=== PATIENT | female | born 1955 | race African-American/Black ===

== ENCOUNTER 2018-05-01 05:04 | Inpatient (IN) ==
[2018-05-01 06:24] LABS: Baso # (Auto) 0.1 th/mm3 (0.0-0.2); Baso % (Auto) 1.3 % (0.0-2.0); Eos # (Auto) 0.2 th/mm3 (0.0-0.4); Eos % (Auto) 3.7 % (0.0-4.0); Hematocrit 22.8 % (35.0-46.0); Hemoglobin 7.2 gm/dL (11.6-15.3); Lymph # (Auto) 1.8 th/mm3 (1.0-4.8); Lymph % (Auto) 28.4 % (9.0-44.0); Mean Corpuscular HGB Conc 31.5 % (32.0-36.0); Mean Corpuscular Hemoglobin 24.9 pg (27.0-34.0); Mean Platelet Volume 9.4 fL (7.0-11.0); Mono # (Auto) 0.5 th/mm3 (0.0-0.9); Mono % (Auto) 8.2 % (0.0-8.0); Neut # (Auto) 3.8 th/mm3 (1.8-7.7); Neut % (Auto) 58.4 % (16.0-70.0); Platelet Count 349 th/mm3 (150-450); Red Blood Count 2.89 mil/mm3 (4.00-5.30); Red Cell Distribution Width 16.2 % (11.6-17.2); White Blood Count 6.5 th/mm3 (4.0-11.0)
[2018-05-01 06:39] LABS: Alanine Aminotransferase 20 U/L (10-53)
[2018-05-01 06:41] LABS: Alkaline Phosphatase 86 U/L (45-117); Total Protein 8.4 g/dL (6.4-8.2)
[2018-05-01 06:43] LABS: Albumin 3.5 g/dL (3.4-5.0); Anion Gap 8 meq/L (5-15); Aspartate Aminotransferase 28 U/L (15-37); Blood Urea Nitrogen 28 mg/dL (7-18); Calcium 9.2 mg/dL (8.5-10.1); Carbon Dioxide 23.8 meq/L (21.0-32.0); Chloride 108 meq/L (98-107); Glomerular Filtration Rate 25 mL/min (>89); Glucose,Random 151 mg/dL (74-106); Potassium 4.3 meq/L (3.5-5.1); Sodium 140 meq/L (136-145)
--- NOTE | 2018-05-01 06:45 | XR ---
EXAM DATE: 05/01/2018 6:36 AM EDT AGE/SEX: 62 years / Female INDICATIONS: Shortness of breath. CLINICAL DATA: This is the patient's initial encounter. Patient reports that signs and symptoms have been present for 1 day and indicates a pain score of 0/10. MEDICAL/SURGICAL HISTORY: Diabetes. Hypertension. . Aortic stent. Nephrectomy. [place] [facility] [place] CONTRAST, 05/01/2018. . FINDINGS: Portable AP view of the chest demonstrates a normal-sized cardiac silhouette. There is an endoluminal stent graft in the proximal descending aorta. EKG lines overlie the patient. There is questionable s ubtle airspace opacity overlying the lower lung zones. No pleural effusion or pneumothorax is identif ied. Bones and soft tissues demonstrate no acute finding. CONCLUSION: Mild hazy opacity in the lower lung zones bilaterally. This pattern can be seen with pulmonary edema. Electronically signed by: Cash Hilario MD 05/01/2018 6:44 AM EDT
--- NOTE | 2018-05-01 06:51 | CT ---
EXAM DATE: 05/01/2018 6:27 AM EDT AGE/SEX: 62 years / Female INDICATIONS: Blood in stool. Possible diverticulitis. CLINICAL DATA: This is the patient's initial encounter. Patient reports that signs and symptoms have been present for 1 day and indicates a pain score of 0/10. MEDICAL/SURGICAL HISTORY: Cardiovascular disease. Hypertension. Coronary artery stent. Mastec pipo, right. RADIATION DOSE: 15.12 CTDI (mGy) COMPARISON: No prior exams available for comparison. TECHNIQUE: Multiple contiguous axial images were obtained through the abdomen. Images were obtained using multiple row detector helical technique. Using automated exposure control and adjustment of the mA and/or kV according to patient size, radiation dose was kept as low as reasonably achievable to o btain optimal diagnostic quality images. DICOM format image data is available electronically for rev iew and comparison. FINDINGS: Lower chest: There is mild groundglass opacity in the lower lobes bilaterally. Distal end of the endo luminal stent graft in the ascending aorta is visualized. Hepatobiliary: Liver density is normal. No focal lesion is seen on this noncontrast examination. Ther e are multiple stones in the gallbladder. No wall thickening is present. Kidneys: No hydronephrosis, stone, or mass. Right kidney is absent. Adrenal Glands: Within normal limits. Spleen: Within normal limits. Pancreas: Within normal limits. Vascular: The aorta is nonaneurysmal. There is mild atherosclerotic disease. Bowel/Mesentery: The stomach and small bowel demonstrate no abnormality. No acute colon abnormality i s seen. There is no free intraperitoneal air or fluid. Appendix is normal. A small hiatal hernia is p resent. Abdominal Wall: No hernia is visualized. Retroperitoneum: No lymphadenopathy. Bladder: No wall thickening or mass. Reproductive: There are 2 areas of hypodensity in the uterus one in the left body measuring 2.1 cm an other on the left fundus measuring 1.8 cm. No adnexal abnormality is seen. Inguinal: No lymphadenopathy or hernia. There are surgical clips in the right inguinal region. Musculoskeletal: No acute osseous abnormality is identified. There are mild degenerative changes of t he lumbar spine. CONCLUSION: 1. No acute abnormality is identified to explain the patient's blood in stool. There are no findings to indicate diverticulitis. 2. Nonacute findings include cholelithiasis, small hiatal hernia, and 2 areas of high density in the left uterus measuring up to 3.1 cm at likely represent uterine fibroids. Electronically signed by: Cash Hilario MD 05/01/2018 6:50 AM EDT
--- NOTE | 2018-05-01 06:54 | ED ---
HPI General Chief complaint: Respiratory Symptoms Stated complaint: Sob Time Seen by Provider: 05/01/18 05:26 Source: patient and RN notes reviewed Mode of arrival: ambulatory History of Present Illness HPI narrative: 62yF presenting with dyspnea and anemia. The patient states that she's had shortness of breath over the past month which occurs both on exertion and at rest. She was seen at [facility] a few days ago, told that she was anemic but did not need a transfusion, and was discharged. She saw her PMD, who sent her to the ED today with a note saying that her outpatient Hg was 6.7. She has a history of CAD s/p CABG several years ago and cardiac stent 3 months ago, started on aspirin and Plavix following the stent; she also had a unilateral nephrectomy due to extensive kidney stones and has renal insufficiency at baseline. Related Data Home Medications Medication Instructions Recorded Confirmed amlodipine 10 mg PO DAILY 05/01/18 05/01/18 aspirin [Aspir-81] 81 mg PO DAILY 05/01/18 05/01/18 atorvastatin 10 mg PO DAILY 05/01/18 05/01/18 chlorthalidone 25 mg PO DAILY 05/01/18 05/01/18 clopidogrel 75 mg PO DAILY 05/01/18 05/01/18 ferrous sulfate 140 mg PO DAILY 05/01/18 05/01/18 glipizide 10 mg PO BID 05/01/18 05/01/18 linagliptin [Tradjenta] 5 mg PO DAILY 05/01/18 05/01/18 lisinopril 40 mg PO DAILY 05/01/18 05/01/18 meloxicam 15 mg PO DAILY 05/01/18 05/01/18 metoprolol tartrate 25 mg PO BID 05/01/18 05/01/18 nitroglycerin 0.4 mg SUBLINGUAL Q5-15M PRN 05/01/18 05/01/18 pantoprazole 20 mg PO DAILY 05/01/18 05/01/18 Allergies Allergy/AdvReac Type Severity Reaction Status Date / Time No Known Allergies Allergy Unverified 05/01/18 05:10 Review of Systems ROS: all other systems reviewed are negative Constitutional Reports chills and Denies fever(s) Eyes Denies blurry vision ENT Denies nasal congestion Cardiovascular Denies chest pain Respiratory Denies cough and Reports dyspnea Gastrointestinal Denies nausea Comments: No black/ tarry/ bloody stools Genitourinary Denies dysuria Musculoskeletal Denies back pain Neurologic Denies confusion Psychiatric Denies confusion COUNT INCLUDES THE [facility] History History Provided By: Patient Medical History Medical History Diabetes (Acute) HTN (hypertension) (Acute) Surgical History Surgical History History of heart artery stent (Acute) History of nephrectomy (Acute) Social History Social History Substance History: No History of Abuse Second Hand Smoke Exposure: No Smoking Status: Former smoker How Often Do You Have a Drink Containing Alcohol: Never Recent Travel in [facility] within the Last 8 Weeks: No Recent Out of Country Travel within the Last 8 Weeks: No Immunization History Tetanus Immunization: >5 Years Hx Influenza Vaccine This Season: No Exam Const General: healthy appearing and no acute distress HENMT Head: normocephalic and atraumatic Face and sinus: normal facial exam Eyes General: appearance normal, both eyes and all related structures Pupils: PERRL Chest Chest: normal inspection of the chest Resp Effort & Inspection: normal respiratory effort Auscultation: no rhonchi and no wheezes Cardio Rate: tachycardic Rhythm: regular rhythm GI Inspection: non-distended Palpation: soft and nontender Other: Normal external rectal exam, no fissures or hemorrhoids. Stool brown, guaiac positive. Skin General: no rashes or lesions noted Other: (+) mucosal pallor Neuro General: alert, awake, oriented x3 and no focal motor deficits Psych Affect: normal affect Procedures Hemaprompt Stool Procedural Steps Taken: specimen placed in appropriate test area, developer placed on specimen and control areas and controls appropriately positive and negative Hemaprompt Stool Result: positive Course Initial Documented Vital Signs Temperature 99.0 F 05/01/18 05:06 Pulse Rate 105 H 05/01/18 05:06 Respiratory Rate 20 05/01/18 05:06 Blood Pressure 139/66 05/01/18 05:06 Pulse Oximetry 97 05/01/18 05:06 Last Documented Vital Signs Temperature 99.0 F 05/01/18 05:06 Pulse Rate 113 H 05/01/18 05:43 Respiratory Rate 16 05/01/18 06:49 Blood Pressure 151/70 H 05/01/18 05:43 Pulse Oximetry 100 05/01/18 06:49 Medical Decision Making [facility] Narrative Medical decision making narrative: Assessment: 62yF presenting with anemia and dyspnea Plan: EKG and monitor Labs, including coags and type and screen Will obtain CT A/P (non-con due to renal insufficiency) to r/o mass or diverticulosis Addendum: Patient found to have Hg of 7.2 but symptomatic (dyspnea at rest, tachycardia) with recent cardiac history. Guaiac (+) in the setting of aspirin/ plavix needed for fresh cardiac stent. Mild pulmonary vascular congestion noted on CXR. No acute pathology seen on CT scan. Creat 2.0, unclear baseline (as per note from PMD, GFR is 24). I spoke with the patient regarding these results and consented her for blood transfusion (signed and in chart). She will need blood transfusion, diuresis, and further workup. Case discussed with Dr. Sol of [facility]. Differential Diagnosis Differential Diagnosis: Differential diagnosis includes, but is not limited to: anemia, GI bleed, arrhythmia, cardiomyopathy, pulmonary edema, pleural effusion Lab Data Lab results reviewed: Yes I reviewed the patient's lab results. Result diagrams: 05/01/18 06:00 05/01/18 06:00 Lab Results 05/01/18 05/01/18 05/01/18 Range/Units 06:00 06:00 06:00 WBC 6.5 (4.0-11.0) th/mm3 RBC 2.89 L (4.00-5.30) mil/mm3 Hgb 7.2 L (11.6-15.3) gm/dL Hct 22.8 L (35.0-46.0) % MCV 79.0 L (80.0-100.0) fL MCH 24.9 L (27.0-34.0) pg MCHC 31.5 L (32.0-36.0) % RDW 16.2 (11.6-17.2) % Plt Count 349 (150-450) th/mm3 MPV 9.4 (7.0-11.0) fL Neut % (Auto) 58.4 (16.0-70.0) % Lymph % (Auto) 28.4 (9.0-44.0) % Stark % (Auto) 8.2 H (0.0-8.0) % Eos % (Auto) 3.7 (0.0-4.0) % Baso % (Auto) 1.3 (0.0-2.0) % Neut # (Auto) 3.8 (1.8-7.7) th/mm3 Lymph # (Auto) 1.8 (1.0-4.8) th/mm3 Stark # (Auto) 0.5 (0.0-0.9) th/mm3 Eos # (Auto) 0.2 (0.0-0.4) th/mm3 Baso # (Auto) 0.1 (0.0-0.2) th/mm3 WBC Differential . Differential Comment Auto diff final PT (9.8-11.6) sec INR Ratio Sodium 140 (136-145) meq/L Potassium 4.3 (3.5-5.1) meq/L Chloride 108 H (98-107) meq/L Carbon Dioxide 23.8 (21.0-32.0) meq/L Anion Gap 8 (5-15) meq/L BUN 28 H (7-18) mg/dL Creatinine 2.03 H (0.50-1.00) mg/dL Estimated GFR 25 L (>89) mL/min Random Glucose 151 H (74-106) mg/dL Calcium 9.2 (8.5-10.1) mg/dL Total Bilirubin 0.3 (0.2-1.0) mg/dL AST 28 (15-37) U/L ALT 20 (10-53) U/L Alkaline Phosphatase 86 (45-117) U/L Total Protein 8.4 H (6.4-8.2) g/dL Albumin 3.5 (3.4-5.0) g/dL Blood Type B Positive Blood Type Recheck Required Antibody Screen Negative 05/01/18 Range/Units 06:50 WBC (4.0-11.0) th/mm3 RBC (4.00-5.30) mil/mm3 Hgb (11.6-15.3) gm/dL Hct (35.0-46.0) % MCV (80.0-100.0) fL MCH (27.0-34.0) pg MCHC (32.0-36.0) % RDW (11.6-17.2) % Plt Count (150-450) th/mm3 MPV (7.0-11.0) fL Neut % (Auto) (16.0-70.0) % Lymph % (Auto) (9.0-44.0) % Stark % (Auto) (0.0-8.0) % Eos % (Auto) (0.0-4.0) % Baso % (Auto) (0.0-2.0) % Neut # (Auto) (1.8-7.7) th/mm3 Lymph # (Auto) (1.0-4.8) th/mm3 Stark # (Auto) (0.0-0.9) th/mm3 Eos # (Auto) (0.0-0.4) th/mm3 Baso # (Auto) (0.0-0.2) th/mm3 WBC Differential Differential Comment PT 10.5 (9.8-11.6) sec INR 1.0 Ratio Sodium (136-145) meq/L Potassium (3.5-5.1) meq/L Chloride (98-107) meq/L Carbon Dioxide (21.0-32.0) meq/L Anion Gap (5-15) meq/L BUN (7-18) mg/dL Creatinine (0.50-1.00) mg/dL Estimated GFR (>89) mL/min Random Glucose (74-106) mg/dL Calcium (8.5-10.1) mg/dL Total Bilirubin (0.2-1.0) mg/dL AST (15-37) U/L ALT (10-53) U/L Alkaline Phosphatase (45-117) U/L Total Protein (6.4-8.2) g/dL Albumin (3.4-5.0) g/dL Blood Type Blood Type Recheck Antibody Screen Imaging Data Radiologist's impression: Abdomen/Pelvis CT 05/01/18 05:45 CONCLUSION: 1. No acute abnormality is identified to explain the patient's blood in stool. There are no findings to indicate diverticulitis. 2. Nonacute findings include cholelithiasis, small hiatal hernia, and 2 areas of high density in the left uterus measuring up to 3.1 cm at likely represent uterine fibroids. Chest X-Ray 05/01/18 05:45 CONCLUSION: Mild hazy opacity in the lower lung zones bilaterally. This pattern can be seen with pulmonary edema. ECG Data Attestation: I personally reviewed and interpreted this ECG as follows: Interpretation: Rate: 85 BPM Rhythm: Sinus Lena: Normal Intervals: Normal intervals, no blocks, QTc 433 ms Q waves: None T waves: Upright, no inversions ST segments: No elevations or depressions Impression: Non-specific EKG, no previous EKG available for comparison. Discharge Plan Discharge Disposition Patient Disposition: 30 Still Patient Discharge Condition Condition: Stable Discharge Details Diagnosis: Anemia requiring transfusions, Chronic kidney insufficiency, GI bleed Physicians Team ED Provider: Trinity Rowland Primary Care Provider: UNKNOWN, Rxs /Orders / Referrals /Forms Prescriptions: No Action clopidogrel 75 mg Tablet 75 mg PO DAILY RF: 0 pantoprazole 20 mg Tablet,Delayed Release (Dr/Ec) 20 mg PO DAILY RF: 0 metoprolol tartrate 25 mg Tablet 25 mg PO BID RF: 0 atorvastatin 10 mg Tablet 10 mg PO DAILY RF: 0 meloxicam 15 mg Tablet 15 mg PO DAILY RF: 0 lisinopril 20 mg Tablet 40 mg PO DAILY RF: 0 glipizide 10 mg Tablet 10 mg PO BID RF: 0 chlorthalidone 25 mg Tablet 25 mg PO DAILY RF: 0 aspirin [Aspir-81] 81 mg Tablet,Delayed Release (Dr/Ec) 81 mg PO DAILY RF: 0 amlodipine 10 mg Tablet 10 mg PO DAILY RF: 0 nitroglycerin 0.4 mg Tablet, Sublingual 0.4 mg SUBLINGUAL Q5-15M PRN (Reason: Chest Pain) RF: 0 ferrous sulfate 140 mg (45 mg iron) Tablet Extended Release 140 mg PO DAILY RF: 0 linagliptin [Tradjenta] 5 mg Tablet 5 mg PO DAILY RF: 0 Status ED Status: With Doctor
[2018-05-01 07:08] LABS: Prothrombin Time 10.5 sec (9.8-11.6)
[2018-05-01] MEDS ORDERED: Dextrose 50% in Water 50 ML Vial IV.PUSH PRN (07:58)
[2018-05-01] MEDS ORDERED: Sodium Chlor 0.9% Inj 250 ML IV.SIG SCH (08:00)
--- NOTE | 2018-05-01 08:12 | P.HPIM ---
History of Present Illness Primary Care Physician: UNKNOWN Chief Complaint: shortness of breath History of Present Illness: patient is a 62 y/o female with history of PUD, CAD- s/p CABG and stent, hypertension, diabetes , CKD- s/p right nephrectomy- presented to ER with one week history of sob. she says that she feels tired and fatigued. she says that she went to [facility] two days ago and after she had some blood work she was discharged home. she had another blood work prior to this presentation when she was found to have a Hb of 6.7 for which she was advised to come back to ER by her PCP. she says that she had some dark stool few days ago. she had mild generalized abdominal pain and nausea earlier which has almost resolved. she denies any chest pain. she says that she had EGD/colonoscopy four years ago and was found to have ' stomach ulcer'. she denies using NSAIDs. Inpatient Certification: I certify that the inpatient services were ordered in accordance with Medicare regulations governing the order. This includes certification that hospital inpatient services are reasonable and necessary and in the case of services not specified as inpatient-only under 42 CFR 419.22(n), that they are appropriately provided as inpatient services in accordance to with the 2-midnight benchmark under 43 CFR 412.3(e) Estimated Total Length of Stay (Days): 2 Plans for Post Hospital Care: Home Review of Systems All other systems reviewed negative except as stated in HPI [facility] - History History Provided By: Patient - Medical History Medical History: Medical History (Last Reviewed 05/01/18 @ 06:50 by Trinity Rowland DO) Diabetes HTN (hypertension) - Surgical History Surgical History: Surgical History (Last Reviewed 05/01/18 @ 06:50 by Trinity Rowland DO) History of heart artery stent History of nephrectomy - Tobacco History Second Hand Smoke Exposure: No Tobacco Use In Past 30 Days: No Smoking Status: Former smoker - Alcohol History How Often Do You Have a Drink Containing Alcohol: Never - Substance Use History Substance History: No History of Abuse - Travel History Recent Travel in the [place] Within the Last 8 Weeks: No Recent Travel Out of the Country Within the Last 8 Weeks: No - Immunization History Tetanus Immunization: >5 Years Hx Influenza Vaccine This Season: No Medications and Allergies Active Medications: Active Medications Dextrose (D50w Vial) 50 ml IV.PUSH UNSCH PRN PRN Reason: PER HYPOGLYCEMIA PROTOCOL Glucagon (Glucagon Inj) 1 mg OTHER UNSCH PRN PRN Reason: for Hypoglycemia Protocol Sodium Chloride (Ns Inj) 250 mls @ 15 mls/hr IV.SIG ONCE DANY Stop: 05/02/18 00:39 Insulin Aspart (Novolog Insulin Correctional Sugar Inj) 0 unit SQ ACHS DANY; Protocol Allergies Allergy/AdvReac Type Severity Reaction Status Date / Time No Known Allergies Allergy Unverified 05/01/18 05:10 Home Medications Medication Instructions Recorded Confirmed Type amlodipine 10 mg PO DAILY 05/01/18 05/01/18 History aspirin [Aspir-81] 81 mg PO DAILY 05/01/18 05/01/18 History atorvastatin 10 mg PO DAILY 05/01/18 05/01/18 History chlorthalidone 25 mg PO DAILY 05/01/18 05/01/18 History clopidogrel 75 mg PO DAILY 05/01/18 05/01/18 History ferrous sulfate 140 mg PO DAILY 05/01/18 05/01/18 History glipizide 10 mg PO BID 05/01/18 05/01/18 History linagliptin [Tradjenta] 5 mg PO DAILY 05/01/18 05/01/18 History lisinopril 40 mg PO DAILY 05/01/18 05/01/18 History meloxicam 15 mg PO DAILY 05/01/18 05/01/18 History metoprolol tartrate 25 mg PO BID 05/01/18 05/01/18 History nitroglycerin 0.4 mg SUBLINGUAL Q5-15M PRN 05/01/18 05/01/18 History pantoprazole 20 mg PO DAILY 05/01/18 05/01/18 History Exam Vital signs: Vital Signs 05/01/18 05:06 05/01/18 05:43 05/01/18 06:49 Temperature 99.0 F Pulse Rate 105 H 113 H Respiratory Rate 20 20 16 Blood Pressure 139/66 151/70 H Pulse Oximetry 97 95 100 Intake & Output 04/30/18 05/01/18 05/01/18 18:59 06:59 18:59 Weight 83.461 kg - Constitutional no acute distress - Routine HEENT Exam Head: Present: normocephalic Eye: Present: PERRL - Routine Neck Exam Present: supple - Routine Respiratory Exam Present: CTA bilaterally - Routine Cardiovascular Exam Present: RRR - Routine Abdominal Exam Present: soft - Routine Extremities Exam Comments: no pedal edema. - Routine Neurological Exam Present: alert, oriented X3 Results - Labs CBC & Chem 7: 05/01/18 06:00 05/01/18 06:00 Labs: Short CBC 05/01/18 Range/Units 06:00 WBC 6.5 (4.0-11.0) th/mm3 Hgb 7.2 L (11.6-15.3) gm/dL Hct 22.8 L (35.0-46.0) % Plt Count 349 (150-450) th/mm3 BMP 05/01/18 06:00 Sodium 140 Potassium 4.3 Chloride 108 H Carbon Dioxide 23.8 BUN 28 H Creatinine 2.03 H Calcium 9.2 Liver Function 05/01/18 Range/Units 06:00 Total Bilirubin 0.3 (0.2-1.0) mg/dL AST 28 (15-37) U/L ALT 20 (10-53) U/L Alkaline Phosphatase 86 (45-117) U/L Albumin 3.5 (3.4-5.0) g/dL - Imaging Impressions Abdomen/Pelvis CT 05/01/18 05:45 CONCLUSION: 1. No acute abnormality is identified to explain the patient's blood in stool. There are no findings to indicate diverticulitis. 2. Nonacute findings include cholelithiasis, small hiatal hernia, and 2 areas of high density in the left uterus measuring up to 3.1 cm at likely represent uterine fibroids. Chest X-Ray 05/01/18 05:45 CONCLUSION: Mild hazy opacity in the lower lung zones bilaterally. This pattern can be seen with pulmonary edema. Caprini VTE Risk Assessment Caprini VTE Risk Assessment: Moderate/High Risk (score >= 2) VTE Pharmacological Exception Reason: High risk for bleeding Caprini Risk Assessment Model: Point Value = 1 Point Value = 2 Point Value = 3 Point Value = 5 Age 41-60 Minor surgery BMI > 25 kg/m2 Swollen legs Varicose veins or History of unexplained or recurrent spontaneous Oral contraceptives or hormone replacement Sepsis (< 1 month) Serious lung disease, including pneumonia (< 1 month) Abnormal pulmonary function Acute myocardial infarction Congestive heart failure (< 1 month) History of inflammatory bowel disease Medical patient at bed rest Age 61-74 Arthroscopic surgery Major open surgery (> 45 min) Laparoscopic surgery (> 45 min) Malignancy Confined to bed (> 72 hours) Immobilizing plaster cast Central venous access Age >= 75 History of VTE Family history of VTE Factor V Leiden Prothrombin [id number] Lupus anticoagulant Anticardiolipin antibodies Elevated serum homocysteine Heparin-induced thrombocytopenia Other congenital or acquired thrombophilia Stroke (< 1 month) Elective arthroplasty Hip, pelvis, or leg fracture Acute spinal cord injury (< 1 month) Prophylaxis Regimen: Total Risk Factor Score Risk Level Prophylaxis Regimen 0-1 Low Early ambulation 2 Moderate Order ONE of the following: *Sequential Compression Device (SCD) *Heparin 5000 units SQ BID 3-4 Higher Order ONE of the following medications: *Heparin 5000 units SQ TID *Enoxaparin/Lovenox 40 mg SQ daily (WT < 150 kg, CrCl > 30 mL/min) *Enoxaparin/Lovenox 30 mg SQ daily (WT < 150 kg, CrCl > 10-29 mL/min) *Enoxaparin/Lovenox 30 mg SQ BID (WT < 150 kg, CrCl > 30 mL/min) AND/OR *Sequential Compression Device (SCD) 5 or more Highest Order ONE of the following medications: *Heparin 5000 units SQ TID (Preferred with Epidurals) *Enoxaparin/Lovenox 40 mg SQ daily (WT < 150 kg, CrCl > 30 mL/min) *Enoxaparin/Lovenox 30 mg SQ daily (WT < 150 kg, CrCl > 10-29 mL/min) *Enoxaparin/Lovenox 30 mg SQ BID (WT < 150 kg, CrCl > 30 mL/min) AND *Sequential Compression Device (SCD) Assessment and Plan - Plan A/P - symptomatic anemia likely due to GI bleed- reported Hb 6.7 prior to this presentation will transfuse with PRBC and continue to monitor H/H-will check iron panel- start on Protonix and consult GI. -CAD- s/p CABG in 2008 and stent placement three months ago- hold aspirin- will resume plavix if ok with GI. continue statin and BB. -s/p right nephrectomy/ CKD- seems to be at her baseline ( reported GFR of 24)- continue to monitor -hypertension; will continue amlodipine and metoprolol- hold NAYELI for now. -diabetes mellitus; start on accu-check with SSI -DVT prophylaxis; SCD's- no chemical prophylaxis due to anemia/ GI bleed. Discussed Condition With: ER and the patient. Discharge Planning: home when GI w/u completed and stable.
--- NOTE | 2018-05-01 08:43 | ECG ---
Date Performed: 05/01/2018 Time Performed: 06:06:18 PTAGE: 62 years EKG: Sinus rhythm NONSPECIFIC ST & T-WAVE ABNORMALITY BORDERLINE ECG NO PREVIOUS TRACING DOCTOR: Naresh Meyers Interpretating Date/Time 05/01/2018 08:37:18
[2018-05-01] MEDS: Insulin NovoLOG Aspart Correctional Sugar Inj SQ SCH ×4 (08:48→21:00)
[2018-05-01] MEDS: Metoprolol Tartrate 25 MG Tablet PO SCH ×3 (09:53→22:26)
[2018-05-01] MEDS: Pantoprazole Inj 40 MG Vial IV.PUSH SCH (09:53)
[2018-05-01] MEDS: Ferrous Sulfate 325 MG Tablet PO SCH (09:53)
[2018-05-01] MEDS: amLODIPine 10 MG Tablet PO SCH (09:53)
--- NOTE | 2018-05-01 12:27 | P.CONGI ---
History of Present Illness Consult date: 05/01/18 Consult reason: Symptomatic anemia Chief complaint: anemia requiring transfusions, GI bleed History of Present Illness: This is a 62 y/o female with history of PUD, CAD- s/p CABG and stent a couple of months ago on Plavix at home, hypertension, diabetes , chronic anemia, CKD s/ p right nephrectomy who presented with sob and fatigue for the past week. Pt was evaluated at [facility] two days ago and was discharged home after doing some blood work. she had another blood work prior to this presentation when she was found to have a Hb of 6.7 for which she was advised to come back to ER by her PCP. She endorses abdominal pain in different areas comes and goes but not severe. She had some dark stools few days ago. Denies nausea, vomiting, diarrhea, constipation or hematochezia she denies any chest pain. she says that she had EGD/colonoscopy four years ago in [place] and was found to have stomach ulcer. she denies alcohol or NSAIDs. She has family hx of colon cancer (mother and brother) <Munira Oliver - Last Filed: 05/10/18 18:30> Review of Systems All other systems reviewed negative except as stated in HPI <Munira Oliver - Last Filed: 05/10/18 18:30> [facility] - Medical History Medical History: Medical History (Last Reviewed 05/01/18 @ 06:50 by Trinity Rowland DO) Diabetes HTN (hypertension) - Surgical History Surgical History: Surgical History (Last Reviewed 05/01/18 @ 06:50 by Trinity Rowland DO) History of heart artery stent History of nephrectomy <Alicia Simmons - Last Filed: 05/01/18 14:53> - History History Provided By: Patient - Medical History Medical History: Medical History (Last Reviewed 05/01/18 @ 14:34 by Alisha Sapp) Diabetes HTN (hypertension) - Surgical History Surgical History: Surgical History (Last Reviewed 05/01/18 @ 14:34 by Alisha Sapp) History of heart artery stent History of nephrectomy - Tobacco History Second Hand Smoke Exposure: No Tobacco Use In Past 30 Days: No Smoking Status: Former smoker - Alcohol History How Often Do You Have a Drink Containing Alcohol: Never - Substance Use History Substance History: No History of Abuse - Travel History Recent Travel in the [place] Within the Last 8 Weeks: No Recent Travel Out of the Country Within the Last 8 Weeks: No - Immunization History Tetanus Immunization: >5 Years Hx Influenza Vaccine This Season: No <LeidaMunira camacho - Last Filed: 05/10/18 18:30> Medications and Allergies Active Medications: Active Medications Amlodipine Besylate (Norvasc) 10 mg PO DAILY [facility] Last Admin: 05/01/18 09:53 Dose: 10 mg Atorvastatin Calcium (Lipitor) 10 mg PO DAILY [facility] Last Admin: 05/01/18 09:53 Dose: 10 mg Dextrose (D50w Vial) 50 ml IV.PUSH UNSCH PRN PRN Reason: PER HYPOGLYCEMIA PROTOCOL Ferrous Sulfate (Ferosul) 325 mg PO DAILY [facility] Last Admin: 05/01/18 09:53 Dose: 325 mg Glucagon (Glucagon Inj) 1 mg OTHER UNSCH PRN PRN Reason: for Hypoglycemia Protocol Sodium Chloride (Ns Inj) 250 mls @ 15 mls/hr IV.SIG ONCE DANY Stop: 05/02/18 00:39 Last Admin: 05/01/18 09:54 Dose: 15 mls/hr Insulin Aspart (Novolog Insulin Correctional Sugar Inj) 0 unit SQ ACHS [facility]; Protocol Last Admin: 05/01/18 12:48 Dose: Not Given Metoprolol Tartrate (Lopressor) 25 mg PO BID [facility] Last Admin: 05/01/18 10:18 Dose: Not Given Pantoprazole Sodium (Protonix Inj) 40 mg IV.PUSH Q24H [facility] Last Admin: 05/01/18 09:53 Dose: 40 mg Polyethylene Glycol/Electrolytes (Colyte Liq) 4,000 ml PO ONCE ONE Stop: 05/01/18 16:01 <Alicia Simmons - Last Filed: 05/01/18 14:53> Active Medications: Active Medications Amlodipine Besylate (Norvasc) 10 mg PO DAILY [facility] Last Admin: 05/01/18 09:53 Dose: 10 mg Atorvastatin Calcium (Lipitor) 10 mg PO DAILY [facility] Last Admin: 05/01/18 09:53 Dose: 10 mg Dextrose (D50w Vial) 50 ml IV.PUSH UNSCH PRN PRN Reason: PER HYPOGLYCEMIA PROTOCOL Ferrous Sulfate (Ferosul) 325 mg PO DAILY [facility] Last Admin: 05/01/18 09:53 Dose: 325 mg Glucagon (Glucagon Inj) 1 mg OTHER UNSCH PRN PRN Reason: for Hypoglycemia Protocol Sodium Chloride (Ns Inj) 250 mls @ 15 mls/hr IV.SIG ONCE DANY Stop: 05/02/18 00:39 Last Admin: 05/01/18 09:54 Dose: 15 mls/hr Insulin Aspart (Novolog Insulin Correctional Sugar Inj) 0 unit SQ ACHS [facility]; Protocol Last Admin: 05/01/18 08:48 Dose: Not Given Metoprolol Tartrate (Lopressor) 25 mg PO BID [facility] Last Admin: 05/01/18 10:18 Dose: Not Given Pantoprazole Sodium (Protonix Inj) 40 mg IV.PUSH Q24H [facility] Last Admin: 05/01/18 09:53 Dose: 40 mg <Munira Oliver - Last Filed: 05/10/18 18:30> Allergies Allergy/AdvReac Type Severity Reaction Status Date / Time No Known Allergies Allergy Unverified 05/01/18 05:10 Home Medications Medication Instructions Recorded Confirmed Type amlodipine 10 mg PO DAILY 05/01/18 05/01/18 History aspirin [Aspir-81] 81 mg PO DAILY 05/01/18 05/01/18 History atorvastatin 10 mg PO DAILY 05/01/18 05/01/18 History chlorthalidone 25 mg PO DAILY 05/01/18 05/01/18 History glipizide 10 mg PO BID 05/01/18 05/01/18 History linagliptin [Tradjenta] 5 mg PO DAILY 05/01/18 05/01/18 History lisinopril 40 mg PO DAILY 05/01/18 05/01/18 History nitroglycerin 0.4 mg SUBLINGUAL Q5-15M PRN 05/01/18 05/01/18 History Exam Vital signs: Vital Signs 05/01/18 05:06 05/01/18 05:43 05/01/18 06:49 Temperature 99.0 F Pulse Rate 105 H 113 H Respiratory Rate 20 20 16 Blood Pressure 139/66 151/70 H Pulse Oximetry 97 95 100 05/01/18 08:30 05/01/18 08:35 05/01/18 08:45 Temperature 98.2 F 98.2 F 98.1 F Pulse Rate 87 65 64 Respiratory Rate 20 20 Blood Pressure 165/73 H 165/73 H 146/68 H Pulse Oximetry 98 98 100 05/01/18 09:18 05/01/18 09:53 05/01/18 10:00 Temperature 98.3 F Pulse Rate 60 64 64 Respiratory Rate 22 20 20 Blood Pressure 150/68 H 148/69 H 148/69 H Pulse Oximetry 100 100 05/01/18 12:46 05/01/18 14:24 Temperature 98.2 F Pulse Rate 75 84 Respiratory Rate 20 17 Blood Pressure 157/74 H 130/61 Pulse Oximetry 100 94 L Intake & Output 04/30/18 05/01/18 05/01/18 18:59 06:59 18:59 Intake Total 0 / 0 Balance 0 / 0 Weight 83.461 kg Intake: Intake (Blood Product) Amt 0 / 0 Rbc As-3 Leukoreduced Unit 0 / 0 [id number] Other: Date of Last Bowel Movement 04/30/18 <Alicia Simmons - Last Filed: 05/01/18 14:53> Vital signs: Vital Signs 05/01/18 05:06 05/01/18 05:43 05/01/18 06:49 Temperature 99.0 F Pulse Rate 105 H 113 H Respiratory Rate 20 20 16 Blood Pressure 139/66 151/70 H Pulse Oximetry 97 95 100 05/01/18 08:30 05/01/18 08:35 05/01/18 08:45 Temperature 98.2 F 98.2 F 98.1 F Pulse Rate 87 65 64 Respiratory Rate 20 20 Blood Pressure 165/73 H 165/73 H 146/68 H Pulse Oximetry 98 98 100 05/01/18 09:18 05/01/18 09:53 05/01/18 10:00 Temperature 98.3 F Pulse Rate 60 64 64 Respiratory Rate 22 20 20 Blood Pressure 150/68 H 148/69 H 148/69 H Pulse Oximetry 100 100 Intake & Output 04/30/18 05/01/18 05/01/18 18:59 06:59 18:59 Intake Total 0 / 0 Balance 0 / 0 Weight 83.461 kg Intake: Intake (Blood Product) Amt 0 / 0 Rbc As-3 Leukoreduced Unit 0 / 0 [id number] - Constitutional no acute distress - Routine HEENT Exam Head: Present: normocephalic ENT: Present: mucous membranes moist - Routine Neck Exam Present: supple - Routine Respiratory Exam Present: CTA bilaterally - Routine Cardiovascular Exam Present: RRR - Routine Abdominal Exam Present: soft, normoactive bowel sounds, tenderness - Routine Extremities Exam Absent: cyanosis, clubbing - Routine Skin Exam Present: intact, dry. Absent: jaundice - Routine Neurological Exam Present: alert, oriented X3 <Munira Oliver - Last Filed: 05/10/18 18:30> Results - Labs CBC & Chem 7: 05/01/18 12:10 05/01/18 06:00 Labs: Laboratory Results - last 24 hr 05/01/18 05/01/18 05/01/18 06:00 06:00 06:00 WBC 6.5 RBC 2.89 L Hgb 7.2 L Hct 22.8 L MCV 79.0 L MCH 24.9 L MCHC 31.5 L RDW 16.2 Plt Count 349 MPV 9.4 Neut % (Auto) 58.4 Lymph % (Auto) 28.4 Kern % (Auto) 8.2 H Eos % (Auto) 3.7 Baso % (Auto) 1.3 Neut # (Auto) 3.8 Lymph # (Auto) 1.8 Kern # (Auto) 0.5 Eos # (Auto) 0.2 Baso # (Auto) 0.1 WBC Differential . Differential Comment Auto diff final PT INR Sodium 140 Potassium 4.3 Chloride 108 H Carbon Dioxide 23.8 Anion Gap 8 BUN 28 H Creatinine 2.03 H Estimated GFR 25 L POC Glucose Random Glucose 151 H Calcium 9.2 Iron TIBC % Saturation Ferritin Total Bilirubin 0.3 AST 28 ALT 20 Alkaline Phosphatase 86 Total Protein 8.4 H Albumin 3.5 Blood Type B Positive Blood Type Recheck Required Antibody Screen Negative MTS Gel Crossmatch 05/01/18 05/01/18 05/01/18 06:50 07:35 08:44 WBC RBC Hgb Hct MCV MCH MCHC RDW Plt Count MPV Neut % (Auto) Lymph % (Auto) Kern % (Auto) Eos % (Auto) Baso % (Auto) Neut # (Auto) Lymph # (Auto) Kern # (Auto) Eos # (Auto) Baso # (Auto) WBC Differential Differential Comment PT 10.5 INR 1.0 Sodium Potassium Chloride Carbon Dioxide Anion Gap BUN Creatinine Estimated GFR POC Glucose 142 H Random Glucose Calcium Iron TIBC % Saturation Ferritin Total Bilirubin AST ALT Alkaline Phosphatase Total Protein Albumin Blood Type Blood Type Recheck Antibody Screen MTS Gel Crossmatch See Detail 05/01/18 05/01/18 05/01/18 12:10 12:10 12:10 WBC RBC Hgb 9.0 L Hct 28.8 L MCV MCH MCHC RDW Plt Count MPV Neut % (Auto) Lymph % (Auto) Kern % (Auto) Eos % (Auto) Baso % (Auto) Neut # (Auto) Lymph # (Auto) Kern # (Auto) Eos # (Auto) Baso # (Auto) WBC Differential Differential Comment PT INR Sodium Potassium Chloride Carbon Dioxide Anion Gap BUN Creatinine Estimated GFR POC Glucose Random Glucose Calcium Iron 150 TIBC 437 % Saturation 34.3 Ferritin 7 L Total Bilirubin AST ALT Alkaline Phosphatase Total Protein Albumin Blood Type Blood Type Recheck Antibody Screen MTS Gel Crossmatch 05/01/18 12:44 WBC RBC Hgb Hct MCV MCH MCHC RDW Plt Count MPV Neut % (Auto) Lymph % (Auto) Kern % (Auto) Eos % (Auto) Baso % (Auto) Neut # (Auto) Lymph # (Auto) Kern # (Auto) Eos # (Auto) Baso # (Auto) WBC Differential Differential Comment PT INR Sodium Potassium Chloride Carbon Dioxide Anion Gap BUN Creatinine Estimated GFR POC Glucose 144 H Random Glucose Calcium Iron TIBC % Saturation Ferritin Total Bilirubin AST ALT Alkaline Phosphatase Total Protein Albumin Blood Type Blood Type Recheck Antibody Screen MTS Gel Crossmatch - Imaging Impressions Abdomen/Pelvis CT 05/01/18 05:45 CONCLUSION: 1. No acute abnormality is identified to explain the patient's blood in stool. There are no findings to indicate diverticulitis. 2. Nonacute findings include cholelithiasis, small hiatal hernia, and 2 areas of high density in the left uterus measuring up to 3.1 cm at likely represent uterine fibroids. Chest X-Ray 05/01/18 05:45 CONCLUSION: Mild hazy opacity in the lower lung zones bilaterally. This pattern can be seen with pulmonary edema. <Alicia Simmons - Last Filed: 05/01/18 14:53> - Labs CBC & Chem 7: 05/02/18 14:01 05/02/18 23:55 Labs: Laboratory Results - last 24 hr 05/01/18 05/01/18 05/01/18 06:00 06:00 06:00 WBC 6.5 RBC 2.89 L Hgb 7.2 L Hct 22.8 L MCV 79.0 L MCH 24.9 L MCHC 31.5 L RDW 16.2 Plt Count 349 MPV 9.4 Neut % (Auto) 58.4 Lymph % (Auto) 28.4 Kern % (Auto) 8.2 H Eos % (Auto) 3.7 Baso % (Auto) 1.3 Neut # (Auto) 3.8 Lymph # (Auto) 1.8 Kern # (Auto) 0.5 Eos # (Auto) 0.2 Baso # (Auto) 0.1 WBC Differential . Differential Comment Auto diff final PT INR Sodium 140 Potassium 4.3 Chloride 108 H Carbon Dioxide 23.8 Anion Gap 8 BUN 28 H Creatinine 2.03 H Estimated GFR 25 L POC Glucose Random Glucose 151 H Calcium 9.2 Total Bilirubin 0.3 AST 28 ALT 20 Alkaline Phosphatase 86 Total Protein 8.4 H Albumin 3.5 Blood Type B Positive Blood Type Recheck Required Antibody Screen Negative MTS Gel Crossmatch 05/01/18 05/01/18 05/01/18 06:50 07:35 08:44 WBC RBC Hgb Hct MCV MCH MCHC RDW Plt Count MPV Neut % (Auto) Lymph % (Auto) Kern % (Auto) Eos % (Auto) Baso % (Auto) Neut # (Auto) Lymph # (Auto) Kern # (Auto) Eos # (Auto) Baso # (Auto) WBC Differential Differential Comment PT 10.5 INR 1.0 Sodium Potassium Chloride Carbon Dioxide Anion Gap BUN Creatinine Estimated GFR POC Glucose 142 H Random Glucose Calcium Total Bilirubin AST ALT Alkaline Phosphatase Total Protein Albumin Blood Type Blood Type Recheck Antibody Screen MTS Gel Crossmatch See Detail - Imaging Impressions Abdomen/Pelvis CT 05/01/18 05:45 CONCLUSION: 1. No acute abnormality is identified to explain the patient's blood in stool. There are no findings to indicate diverticulitis. 2. Nonacute findings include cholelithiasis, small hiatal hernia, and 2 areas of high density in the left uterus measuring up to 3.1 cm at likely represent uterine fibroids. Chest X-Ray 05/01/18 05:45 CONCLUSION: Mild hazy opacity in the lower lung zones bilaterally. This pattern can be seen with pulmonary edema. <Munira Oliver - Last Filed: 05/10/18 18:30> Assessment and Plan - Attending Attestation seen, examined agree with above history of chronic anemia , has beed on iron for many years recently was seen at [facility], had ct abdomen/pelvis States her hb was 6 for few weeks She had a recent cardiac stent 2 month ago, had a stent placed-was started onPalvix She was aslo taking Meloxicam, was dc recently states she also had a nephew who of colon cancer at age 7 we will consult hematology too <Alicia Simmons - Last Filed: 05/01/18 14:53> - Plan - Chronic anemia on acute anemia , worsening, now symptomatic with this- hgb 7.2 with sob and fatigue for the past week. Pt was evaluated at [facility] two days ago and was discharged home after doing some blood work. she had another blood work prior to this presentation when she was found to have a Hb of 6.7 for which she was advised to come back to ER by her PCP. She endorses abdominal pain in different areas comes and goes but not severe. She had some dark stools few days ago. Denies nausea, vomiting, diarrhea, constipation or hematochezia she denies any chest pain. she says that she had EGD/ colonoscopy four years ago in [place] and was found to have stomach ulcer. she denies alcohol or NSAIDs Abdomen/Pelvis CT 05/01/18 05:45 CONCLUSION: 1. No acute abnormality is identified to explain the patient's blood in stool. There are no findings to indicate diverticulitis. 2. Nonacute findings include cholelithiasis, small hiatal hernia, and 2 areas of high density in the left uterus measuring up to 3.1 cm at likely represent uterine fibroids. - CAD- s/p CABG and stent a couple of months ago on Plavix at home, - hypertension, diabetes , chronic anemia, CKD s/p right nephrectomy Plan: - Clears - EGD/colonoscopy in the am - NPO mn - Cont. to hold Plavix for now - Monitor hh - Transfuse as needed - Supportive care - Pt seen and examined by Dr. Simmons and myself and this note is written on her behalf. <Munira Oliver - Last Filed: 05/10/18 18:30>
[2018-05-01 12:54] LABS: % Iron Saturation 34.3 % (20-50)
[2018-05-01] MEDS ORDERED: PEG 3350/E-Lyte Soln 4000 ML Bottle PO ONE (16:00)
[2018-05-02] MEDS ORDERED: Chlorhexidine Gluconate 2% 1 Pack (2 Cloths) TOPICAL SCH (06:30)
[2018-05-02] MEDS ORDERED: Sodium Chlor 0.9% Inj 500 ML IV.SIG SCH (07:00)
[2018-05-02] MEDS: Metoprolol Tartrate 25 MG Tablet PO SCH ×2 (08:45→20:42)
[2018-05-02] MEDS: Ferrous Sulfate 325 MG Tablet PO SCH (08:56)
[2018-05-02] MEDS: Insulin NovoLOG Aspart Correctional Sugar Inj SQ SCH ×4 (08:56→20:43)
[2018-05-02] MEDS: amLODIPine 10 MG Tablet PO SCH (08:57)
[2018-05-02] MEDS: Pantoprazole Inj 40 MG Vial IV.PUSH SCH (08:58)
--- NOTE | 2018-05-02 10:13 | P.PNIM ---
Subjective Interval history: f/u; symptomatic anemia looks and feels much better today. feels stronger and sob has resolved. denies abdominal pain. Physical Exam Vital signs: Vital Signs 05/01/18 12:46 05/01/18 14:24 05/01/18 16:00 Temperature 98.2 F 98.3 F Pulse Rate 75 84 80 Respiratory Rate 20 17 18 Blood Pressure 157/74 H 130/61 141/66 H Pulse Oximetry 100 94 L 100 05/01/18 21:21 05/01/18 22:00 05/01/18 23:59 Temperature 98.9 F 98.6 F Pulse Rate 76 76 72 Respiratory Rate 18 18 Blood Pressure 136/64 133/64 Pulse Oximetry 98 95 05/02/18 04:00 Temperature 98.2 F Pulse Rate 79 Respiratory Rate 18 Blood Pressure 121/63 Pulse Oximetry 96 Intake & Output 05/01/18 05/02/18 05/02/18 18:59 06:59 18:59 Intake Total 240 / 240 480 / 480 Balance 240 / 240 480 / 480 Weight 83.4 kg Intake: Oral 240 / 240 480 / 480 Intake (Blood Product) Amt 0 / 0 Rbc As-3 Leukoreduced Unit 0 / 0 [id number] Other: # Voids 3 Date of Last Bowel Movement 04/30/18 04/30/18 05/02/18 # Bowel Movements 6 - Constitutional no acute distress - Routine Respiratory Exam Present: CTA bilaterally - Routine Cardiovascular Exam Present: RRR - Routine Abdominal Exam Present: soft - Routine Extremities Exam Comments: no pedal edema. - Routine Neurological Exam Present: alert, oriented X3 Results - Labs CBC & Chem 7: 05/01/18 12:10 05/01/18 06:00 Laboratory Results - last 24 hr 05/01/18 05/01/18 05/01/18 12:10 12:10 12:10 Hgb 9.0 L Hct 28.8 L POC Glucose Iron 150 TIBC 437 % Saturation 34.3 Ferritin 7 L 05/01/18 05/01/18 05/01/18 12:44 17:16 20:04 Hgb Hct POC Glucose 144 H 103 146 H Iron TIBC % Saturation Ferritin 05/02/18 08:52 Hgb Hct POC Glucose 139 H Iron TIBC % Saturation Ferritin Assessment and Plan - Plan A/P - symptomatic anemia likely due to GI bleed- reported Hb 6.7 prior to this presentation- clinically better. H/H improved after PRBC transfusion- started on Protonix. GI consult appreciated;awaiting panendoscopy and hematology evaluation. -CAD- s/p CABG in 2008 and stent placement three months ago- hold aspirin- will resume plavix as soon as cleared by GI. continue statin and BB. -s/p right nephrectomy/ CKD- seems to be at her baseline ( reported GFR of 24)- continue to monitor -hypertension; will continue amlodipine and metoprolol- hold NAYELI for now. -diabetes mellitus; started on accu-check with SSI -DVT prophylaxis; SCD's- no chemical prophylaxis due to anemia/ GI bleed. Discharge Planning: home when GI w/u completed and cleared by GI and Hematology.
[2018-05-02] MEDS ORDERED: Lidocaine PF 1% Inj 5 ML Syringe INFILTRATN ONE (12:00)
[2018-05-02] MEDS ORDERED: Phenylephrine/NS 1000 MCG/10ML Syringe IV.PUSH ONE (12:00)
[2018-05-02 15:00] LABS: Hematocrit 28.6 % (35.0-46.0); Hemoglobin 9.2 gm/dL (11.6-15.3); Mean Corpuscular Hemoglobin 25.8 pg (27.0-34.0); Mean Corpuscular Volume 80.7 fL (80.0-100.0); Platelet Count 263 th/mm3 (150-450); Red Blood Count 3.55 mil/mm3 (4.00-5.30); Red Cell Distribution Width 15.9 % (11.6-17.2); White Blood Count 8.2 th/mm3 (4.0-11.0)
--- NOTE | 2018-05-02 15:51 | GIPROC ---
[facility] [address] [facility]. [facility], [id number] COLONOSCOPY PROCEDURE REPORT EXAM DATE: 05/02/2018 PATIENT NAME: Veda Saenz MR #: [id number] BIRTHDATE: 1955 ENDOSCOPIST: Richelle Austin MD ORDER #: [id number] VALUE ANALYSIS COORDINATOR: Silvia Barron Stienbarger, Terrie, Wilcox-Hassen, Alice, and Lauren Gill STATUS: inpatient INDICATIONS: The patient is a 62 yr old female here for a colonoscopy due to Anemia PROCEDURE PERFORMED: Colonoscopy, diagnostic MEDICATIONS: None and Per Anesthesia. PREP QUALITY: good ESTIMATED BLOOD LOSS: None CONSENT: The patient understands the risks and benefits of the procedure and understands that these risks include, but are not limited to: sedation, allergic reaction, infection, perforation and/or bleeding. Alternative means of evaluation and treatment include, among others: physical exam, x-rays, and/or surgical intervention. The patient elects to proceed with this endoscopic procedure. medical equipment was checked for proper function. Hand hygiene and appropriate measures for infection prevention was taken. After the risks, benefits and alternatives of the procedure were thoroughly explained, Informed consent was verified, confirmed and timeout was successfully executed by the treatment team. A digital exam was performed and revealed no abnormalities of the rectum The Pentax EC-[id number] endoscope was introduced through the anus and advanced to the terminal ileum which was intubated for a short distance. The instrument was then slowly withdrawn as the colon was fully examined. COLON FINDINGS: Normal exam. Retroflexed views revealed internal hemorrhoids and Retroflexed views revealed small internal hemorrhoids The scope was then completely withdrawn from the patient and the procedure terminated. ADVERSE EVENTS: There were no complications. IMPRESSIONS: 1. Normal exam 2. Retroflexed views revealed internal hemorrhoids 3. Retroflexed views revealed small internal hemorrhoids 4. Was performed 5. Revealed no abnormalities of the rectum RECOMMENDATIONS: 1. High fiber diet 2. Yearly hemoccult RECALL: Return 10 years Colonoscopy Richelle Austin MD eSigned: Richelle Austin MD 05/02/2018 3:50 PM cc:
--- NOTE | 2018-05-02 15:53 | GIPROC ---
[facility] [address] [facility]. [facility], [address] EGD PROCEDURE REPORT EXAM DATE: 05/02/2018 PATIENT NAME: Veda Saenz MR #: [id number] BIRTHDATE: 1955 ATTENDING: Richelle Austin MD ORDER #: [id number] ROUND CORNER CUTTER OPERATOR: Silvia Barron Stienbarger, Terrie, Wilcox-Hassen, Alice, and Lauren Gill STATUS: inpatient INDICATIONS: The patient is a 62 yr old female here for an EGD due to PROCEDURE PERFORMED: EGD w/ biopsy EGD w/ ablation MEDICATIONS: None and Per Anesthesia. TOPICAL ANESTHETIC: none CONSENT: The patient understands the risks and benefits of the procedure and understands that these risks include, but are not limited to: sedation, allergic reaction, infection, perforation and/or bleeding. Alternative means of evaluation and treatment include, among others: physical exam, x-rays, and/or surgical intervention. The patient elects to proceed with this endoscopic procedure. medical equipment was checked for proper function. Hand hygiene and appropriate measures for infection prevention was taken. After the risks, benefits and alternatives of the procedure were thoroughly explained, Informed consent was verified, confirmed and timeout was successfully executed by the treatment team. The patient was anesthetized with topical anesthesia and the EC-[id number] (Pedi C) endoscope was introduced through the mouth and advanced to the third portion of the duodenum. Retroflexed views revealed no abnormalities The gastroscope was then slowly withdrawn and removed. 1 AVM in the duodenum second portion ablated with heat no active bleeding. Mild gastritis biopsy was done at the antrum. Irregular Z line biopsy at the EG junction possible short Hou's. ADVERSE EVENTS: There were no complications. IMPRESSIONS: 1. 1 AVM in the duodenum second portion ablated with heat no active bleeding 2. Mild gastritis biopsy was done at the antrum 3. Irregular Z line biopsy at the EG junction possible short Hou's 4. Retroflexed views revealed no abnormalities RECOMMENDATIONS: 1. Await biopsy results. Biopsy results will not be ready for 7-10 days. If you don't hear from us in two weeks, call our office for biopsy results. 2. Avoid NSAIDS 3. Await biopsy results. Biopsy results will not be ready for 7-10 days. If you don't hear from us in two weeks, call our office for biopsy results. 4. Continue PPI PATIENT CONDITION: stable DISPOSITION: Inpatient REPEAT EXAM: NONE Richelle Austin MD eSigned: Richelle Austin MD 05/02/2018 3:53 PM cc: PATIENT NAME: Veda Saenz MR#: [id number]
--- NOTE | 2018-05-02 15:56 | P.PNGI ---
Subjective Interval history: Patient is doing well laying in bed comfortably, no sign of active bleeding, had upper endoscopy and colonoscopy today Physical Exam Vital signs: Vital Signs 05/01/18 16:00 05/01/18 21:21 05/01/18 22:00 Temperature 98.3 F 98.9 F Pulse Rate 80 76 76 Respiratory Rate 18 18 Blood Pressure 141/66 H 136/64 Pulse Oximetry 100 98 05/01/18 23:59 05/02/18 04:00 05/02/18 08:00 Temperature 98.6 F 98.2 F 97.9 F Pulse Rate 72 79 64 Respiratory Rate 18 18 16 Blood Pressure 133/64 121/63 138/70 Pulse Oximetry 95 96 99 05/02/18 12:00 05/02/18 15:38 Temperature 98 F 97.9 F Pulse Rate 57 L 65 Respiratory Rate 18 Blood Pressure 106/59 L 132/63 Pulse Oximetry 100 97 Intake & Output 05/01/18 05/02/18 05/02/18 18:59 06:59 18:59 Intake Total 240 / 240 480 / 480 Balance 240 / 240 480 / 480 Weight 83.4 kg Intake: Oral 240 / 240 480 / 480 Intake (Blood Product) Amt 0 / 0 Rbc As-3 Leukoreduced Unit 0 / 0 [id number] Other: # Voids 3 Date of Last Bowel Movement 04/30/18 04/30/18 05/02/18 # Bowel Movements 6 - Constitutional no acute distress - Routine HEENT Exam Head: Present: normocephalic, atraumatic Eye: Present: EOMI, PERRL ENT: Present: mucous membranes moist - Routine Neck Exam Present: supple, full ROM - Routine Respiratory Exam Present: decreased breath sounds, CTA bilaterally - Routine Cardiovascular Exam Present: RRR, S1, S2 - Routine Abdominal Exam Present: soft, normoactive bowel sounds Results - Labs CBC & Chem 7: 05/02/18 14:01 05/01/18 06:00 Laboratory Results - last 24 hr 05/01/18 05/01/18 05/02/18 17:16 20:04 08:52 WBC RBC Hgb Hct MCV MCH MCHC RDW Plt Count MPV Hematology Comments POC Glucose 103 146 H 139 H 05/02/18 05/02/18 12:27 14:01 WBC 8.2 RBC 3.55 L Hgb 9.2 L Hct 28.6 L MCV 80.7 MCH 25.8 L MCHC 32.0 RDW 15.9 Plt Count 263 MPV 9.0 Hematology Comments POC Glucose 109 Assessment and Plan - Plan - Chronic anemia on acute anemia , worsening, now symptomatic with this- hgb 7.2 with sob and fatigue for the past week. Pt was evaluated at [facility] two days ago and was discharged home after doing some blood work. she had another blood work prior to this presentation when she was found to have a Hb of 6.7 for which she was advised to come back to ER by her PCP. She endorses abdominal pain in different areas comes and goes but not severe. She had some dark stools few days ago. Denies nausea, vomiting, diarrhea, constipation or hematochezia she denies any chest pain. she says that she had EGD/ colonoscopy four years ago in [place] and was found to have stomach ulcer. she denies alcohol or NSAIDs Abdomen/Pelvis CT 05/01/18 05:45 CONCLUSION: 1. No acute abnormality is identified to explain the patient's blood in stool. There are no findings to indicate diverticulitis. 2. Nonacute findings include cholelithiasis, small hiatal hernia, and 2 areas of high density in the left uterus measuring up to 3.1 cm at likely represent uterine fibroids. - CAD- s/p CABG and stent a couple of months ago on Plavix at home, - hypertension, diabetes , chronic anemia, CKD s/p right nephrectomy 05/02/2018 patient is doing better, no active bleeding, had some blood in the stool, she had upper endoscopy and colonoscopy Upper endoscopy showed AVM, irregular Z line in the esophagus, gastritis, colonoscopy showed internal hemorrhoids Recommendation May feed patient Lowest possible anticoagulation dose Supportive care Continue PPI Follow-up biopsy Monitor H&H with pack RBC as needed
--- NOTE | 2018-05-02 16:02 | P.PCN ---
Procedure: Please see full report that was previously dictated through [facility] system
--- NOTE | 2018-05-02 20:55 | MB ---
cc: Pancho Marion MD DATE: 05/02/2018 REASON FOR CONSULTATION: Anemia. PATIENT PROFILE: The patient is a 62-year-old white female. She was once and . She lives with her son and 2 grandchildren. She has a total of 7 children. She was born in [place], [place]. She stopped smoking in 2001 and previously smoked 1-1/2 packs of cigarettes per day. Alcohol intake in the past has been minimal. She currently does not drink. HISTORY OF PRESENT ILLNESS: The patient is a 62-year-old female who had a right nephrectomy in 2004 for renal stones. In 2008, she had cardiac stents placed. Approximately 2 months ago, she had shortness of breath and was evaluated at [facility]. She was told that she was anemic, but she was also found to have coronary artery disease and cardiac stents were placed. She was given aspirin and Plavix folowing stent placement. She also took Mobic for arthritis. Approximately 4 years ago, she had a history of what sounds like duodenal ulcer disease. She describes what I believe is an upper endoscopy and fulguration of an ulcer. This was performed in [place]. It was associated with bleeding. She has continued to be short of breath. She was found to be anemic, which appears to be more of an ongoing problem. Her physician told her to go to [facility] on 05/01/2018. She is also taking oral iron. On 05/01/2018, hemoglobin was 7.2, white count 6500, platelets 249,000. The differential was normal. PT and INR were normal. Electrolytes, BUN and creatinine are pending. She was transfused 1 unit of packed cells. Her current hemoglobin on 05/02/2018 is 9.2, white count 8200 and platelets 263,000. She feels better. Her shortness of breath and chest discomfort have resolved. Laboratory tests on 05/01/2018 showed a serum ferritin of 7, iron 150, TIBC 437, saturation 34%. Her BUN is 28, creatinine is 2.0 and her GFR is 25. At the time these studies were done, she was taking oral iron replacement. The patient underwent an upper endoscopy and colonoscopy today performed by Dr. Austin. No bleeding source was identified. Upper endoscopy showed AVM, irregular Z-line in the esophagus, gastritis. Colonoscopy showed internal hemorrhoids. She was found to have heme-positive stools. On 05/01/2018 a chest x-ray showing mild hazy opacity in the lower lungs bilaterally suggestive of heart failure. A CT scan of the abdomen and pelvis dated 05/01/2018 showed no acute abnormality. There was evidence of cholelithiasis, a small hiatal hernia and what appeared to be uterine fibroids. PAST SURGICAL HISTORY: 1. Right nephrectomy in 2004. 2. Cardiac stents x2 in 2008 and repeated again approximately 2 months ago. PAST MEDICAL HISTORY: 1. Renal stones. 2. Coronary artery disease. 3. Fracture of left wrist. 4. Bleeding from what sounds like duodenal ulcer disease approximately 4 years ago found on upper endoscopy, and according to the patient, she may have undergone fulguration. 5. Hypertension. 6. Diabetes. MEDICATIONS PRIOR TO ADMISSION: 1. Plavix. 2. Aspirin. 3. Lisinopril. 4. Amlodipine. 5. Mobic. 6. Tradjenta. 7. Atorvastatin. 8. Glipizide. 9. Chlorthalidone. 10. Protonix. 11. Iron sulfate. ALLERGIES: NO KNOWN ALLERGIES. FAMILY HISTORY: Noncontributory. REVIEW OF SYSTEMS: Vision is fine, hearing is fine. Occasional chest discomfort and exertional shortness of breath. Stools on one occasion were black. She has not seen any adrien blood. No dysuria or frequency. She does have some mild arthritis. No focal weakness. No psychiatric issues. No skin problems. PHYSICAL EXAMINATION: GENERAL: Reveals a well-appearing female. VITAL SIGNS: Blood pressure 130/60, respiratory rate 18, pulse 64, afebrile, O2 saturation 97%. HEENT: Head is normocephalic. Sclerae and conjunctivae are normal. Oropharynx is unremarkable. LYMPHATIC: No cervical, supraclavicular, axillary or inguinal adenopathy. HEART: Regular rate and rhythm. LUNGS: Clear without rales, wheezes or rhonchi. ABDOMEN: Without hepatosplenomegaly or masses. EXTREMITIES: Trace edema. MUSCULOSKELETAL: No bone pain. NEUROLOGIC: No weakness. Cognition and affect normal. SKIN: Normal. ASSESSMENT: I believe the patient has been having gastrointestinal bleeding. She has a serum ferritin of 7 and her MCV is 80. She also gives a history of a black stool and current stool is heme test positve. I suspect that the bleeding was due to the aspirin, Plavix and Mobic. I do not think it is likely that she has a primary hematologic problem given a normal white count, platelet count and differential. Her BUN is 28, creatinine is 2.0 and her GFR is 25. This would certainly contribute to underlying anemia, but would not explain the very low hemoglobins. RECOMMENDATIONS: 1. Avoid nonsteroidal anti-inflammatory medications. 2. Anticoagulation as per cardiology. Hopefully, at some point, she will not need both aspirin and Plavix and she can use 1 medicine. 3. Whatever medicines GI feel are appropriate to prevent GI bleeding. 4. She is to take iron sulfate 325 mg 1 tablet a day. 5. She should follow up with her primary care physician. If iron deficiency anemia becomes recurrent, then she can be given an iron infusion, but ultimately, the most successful intervention will be to stop the bleeding. I gave her my name so her primary care physician can contact me, and I asked her to take iron sulfate. She will also need followup for her renal failure and she tells me she has an apointment with a "kidney doctor". MD MICHELLE Reinoso/prateek , 05:44 PM , 06:00 PM MTDGerardo
[2018-05-03 00:32] LABS: Calcium 9.1 mg/dL (8.5-10.1); Carbon Dioxide 27.8 meq/L (21.0-32.0); Potassium 3.8 meq/L (3.5-5.1)
[2018-05-03] MEDS: Ferrous Sulfate 325 MG Tablet PO SCH (08:02)
[2018-05-03] MEDS: Metoprolol Tartrate 25 MG Tablet PO SCH (08:02)
[2018-05-03] MEDS: amLODIPine 10 MG Tablet PO SCH (08:03)
[2018-05-03] MEDS: Pantoprazole Inj 40 MG Vial IV.PUSH SCH (08:03)
[2018-05-03] MEDS: Insulin NovoLOG Aspart Correctional Sugar Inj SQ SCH (08:23)
--- NOTE | 2018-05-03 08:40 | P.PNIM ---
Subjective Interval history: f/u; anemia in no acute distress. no sob, dizziness. no new complaints. Physical Exam Vital signs: Vital Signs 05/02/18 12:00 05/02/18 15:38 05/02/18 19:20 Temperature 98 F 97.9 F 97.8 F Pulse Rate 57 L 65 82 Respiratory Rate 18 18 Blood Pressure 106/59 L 132/63 175/75 H Pulse Oximetry 100 97 100 05/02/18 20:00 05/03/18 00:00 05/03/18 04:00 Temperature 97.9 F 98.3 F Pulse Rate 72 77 69 Respiratory Rate 16 14 Blood Pressure 147/67 H 142/66 H Pulse Oximetry Intake & Output 05/02/18 05/03/18 05/03/18 18:59 06:59 18:59 Intake Total 400 / 400 1000 / 1000 Balance 400 / 400 1000 / 1000 Weight 83.7 kg Intake: IV 400 / 400 1000 / 1000 LR 1000 mL Inj 1,000 ML @ 30 400 / 400 1000 / 1000 mls/hr IV.SIG .Q24H [facility] Rx#: [id number] Other: Date of Last Bowel Movement 05/02/18 05/02/18 05/02/18 - Constitutional no acute distress - Routine Respiratory Exam Present: CTA bilaterally - Routine Cardiovascular Exam Present: RRR - Routine Abdominal Exam Present: soft - Routine Extremities Exam Comments: no pedal edema. - Routine Neurological Exam Present: alert, oriented X3 Results - Labs CBC & Chem 7: 05/02/18 14:01 05/02/18 23:55 Laboratory Results - last 24 hr 05/02/18 05/02/18 05/02/18 08:52 12:27 14:01 WBC 8.2 RBC 3.55 L Hgb 9.2 L Hct 28.6 L MCV 80.7 MCH 25.8 L MCHC 32.0 RDW 15.9 Plt Count 263 MPV 9.0 Hematology Comments Sodium Potassium Chloride Carbon Dioxide Anion Gap BUN Creatinine Estimated GFR POC Glucose 139 H 109 Random Glucose Calcium 05/02/18 05/02/18 05/02/18 16:19 20:37 23:55 WBC RBC Hgb Hct MCV MCH MCHC RDW Plt Count MPV Hematology Comments Sodium 143 Potassium 3.8 Chloride 108 H Carbon Dioxide 27.8 Anion Gap 7 BUN 19 H Creatinine 1.81 H Estimated GFR 34 L POC Glucose 97 161 H Random Glucose 113 H Calcium 9.1 - Procedures EGD/ colonoscopy. Assessment and Plan - Plan A/P - symptomatic anemia likely due to GI bleed- reported Hb 6.7 prior to this presentation- clinically better. H/H improved after PRBC transfusion- started on Protonix. GI consult appreciated- s/p EGD/ colonoscopy; Upper endoscopy showed AVM, irregular Z line in the esophagus, gastritis, colonoscopy showed internal hemorrhoids. hematology consult appreciated and recommended iron supplement with f/u with her pcp. -CAD- s/p CABG in 2008 and stent placement three months ago- will d/w her precise winder today about her antiplatelet regimen. -s/p right nephrectomy/ CKD- seems to be at her baseline ( reported GFR of 24)- continue to monitor -hypertension; will resume home meds upo discharge. -diabetes mellitus; started on accu-check with SSI -DVT prophylaxis; SCD's- no chemical prophylaxis due to anemia/ GI bleed. Discharge Planning: home today- after case has been d/w her precise winder. see med list. f/u; pcp, GI and cardiology. d/w the patient.
--- NOTE | 2018-05-03 08:42 | P.DS ---
Date of admission: 05/01/18 07:33 Primary care physician: UNKNOWN Brief History from admission: patient is a 62 y/o female with history of PUD, CAD- s/p CABG and stent, hypertension, diabetes , CKD- s/p right nephrectomy- presented to ER with one week history of sob. she says that she feels tired and fatigued. she says that she went to [facility] two days ago and after she had some blood work she was discharged home. she had another blood work prior to this presentation when she was found to have a Hb of 6.7 for which she was advised to come back to ER by her PCP. she says that she had some dark stool few days ago. she had mild generalized abdominal pain and nausea earlier which has almost resolved. she denies any chest pain. she says that she had EGD/colonoscopy four years ago and was found to have ' stomach ulcer'. she denies using NSAIDs. DS: Summary Hospital Course: patient was admitted with symptomatic anemia. she received PRBC transfusion. H/ H improved along with her clinical condition. GI was consulted and she underwent EGD/ colonoscopy; Upper endoscopy showed AVM, irregular Z line in the esophagus, gastritis, colonoscopy showed internal hemorrhoids. she was also seen by Hematology who recommended iron supplement. biopsy from EGD needs to be followed up. will continue with PPI. - Time Spent with Patient Total time spent providing and/or coordinating discharge services: Less than 30 minutes - Quality: VTE Deep Vein Thrombosis/Pulmonary Embolism Present on Admission: No Exam Vital signs: Vital Signs 05/02/18 12:00 05/02/18 15:38 05/02/18 19:20 Temperature 98 F 97.9 F 97.8 F Pulse Rate 57 L 65 82 Respiratory Rate 18 18 Blood Pressure 106/59 L 132/63 175/75 H Pulse Oximetry 100 97 100 05/02/18 20:00 05/03/18 00:00 05/03/18 04:00 Temperature 97.9 F 98.3 F Pulse Rate 72 77 69 Respiratory Rate 16 14 Blood Pressure 147/67 H 142/66 H Pulse Oximetry Intake & Output 05/02/18 05/03/18 05/03/18 18:59 06:59 18:59 Intake Total 400 / 400 1000 / 1000 Balance 400 / 400 1000 / 1000 Weight 83.7 kg Intake: IV 400 / 400 1000 / 1000 LR 1000 mL Inj 1,000 ML @ 30 400 / 400 1000 / 1000 mls/hr IV.SIG .Q24H [facility] Rx#: [id number] Other: Date of Last Bowel Movement 05/02/18 05/02/18 05/02/18 Results Procedures completed during hospitalization: EGD/ colonoscopy. Pending studies at discharge: Pending at discharge 05/02/18 Surgical [PTH] Routine Labs on day of discharge: Labs from last 24 hours 05/02/18 05/02/18 05/02/18 23:55 20:37 16:19 WBC RBC Hgb Hct MCV MCH MCHC RDW Plt Count MPV Hematology Comments Sodium 143 Potassium 3.8 Chloride 108 H Carbon Dioxide 27.8 Anion Gap 7 BUN 19 H Creatinine 1.81 H Estimated GFR 34 L POC Glucose 161 H 97 Random Glucose 113 H Calcium 9.1 05/02/18 05/02/18 05/02/18 14:01 12:27 08:52 WBC 8.2 RBC 3.55 L Hgb 9.2 L Hct 28.6 L MCV 80.7 MCH 25.8 L MCHC 32.0 RDW 15.9 Plt Count 263 MPV 9.0 Hematology Comments Sodium Potassium Chloride Carbon Dioxide Anion Gap BUN Creatinine Estimated GFR POC Glucose 109 139 H Random Glucose Calcium - Impressions ITS Impressions Abdomen/Pelvis CT 05/01/18 05:45 CONCLUSION: 1. No acute abnormality is identified to explain the patient's blood in stool. There are no findings to indicate diverticulitis. 2. Nonacute findings include cholelithiasis, small hiatal hernia, and 2 areas of high density in the left uterus measuring up to 3.1 cm at likely represent uterine fibroids. Chest X-Ray 05/01/18 05:45 CONCLUSION: Mild hazy opacity in the lower lung zones bilaterally. This pattern can be seen with pulmonary edema. Discharge Plan - Discharge Condition Condition: Stable - Physicians Team Primary Care Provider: UNKNOWN, Attending Provider: Dahlia Sol Other Providers: Alicia Simmons MD ; Pancho Marion MD
--- NOTE | 2018-05-03 10:01 | P.PNADD ---
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
--- NOTE | 2018-05-03 10:27 | P.PNGI ---
Subjective Interval history: Pt sitting on couch, in normal clothing, she is waiting on her discharge paper. States she feels great today, no nausea, vomiting, abdominal pain. Physical Exam Vital signs: Vital Signs 05/02/18 12:00 05/02/18 15:38 05/02/18 19:20 Temperature 98 F 97.9 F 97.8 F Pulse Rate 57 L 65 82 Respiratory Rate 18 18 Blood Pressure 106/59 L 132/63 175/75 H Pulse Oximetry 100 97 100 05/02/18 20:00 05/03/18 00:00 05/03/18 04:00 Temperature 97.9 F 98.3 F Pulse Rate 72 77 69 Respiratory Rate 16 14 Blood Pressure 147/67 H 142/66 H Pulse Oximetry Intake & Output 05/02/18 05/03/18 05/03/18 18:59 06:59 18:59 Intake Total 400 / 400 1000 / 1000 Balance 400 / 400 1000 / 1000 Weight 83.7 kg Intake: IV 400 / 400 1000 / 1000 LR 1000 mL Inj 1,000 ML @ 30 400 / 400 1000 / 1000 mls/hr IV.SIG .Q24H [facility] Rx#: [id number] Other: Date of Last Bowel Movement 05/02/18 05/02/18 05/02/18 - Constitutional no acute distress - Routine HEENT Exam Head: Present: normocephalic, atraumatic - Routine Respiratory Exam Absent: accessory muscle use - Routine Abdominal Exam Present: soft, normoactive bowel sounds. Absent: tenderness, distended - Routine Skin Exam Present: dry, warm - Routine Neurological Exam Present: alert, oriented X3 Results - Labs CBC & Chem 7: 05/02/18 14:01 05/02/18 23:55 Laboratory Results - last 24 hr 05/02/18 05/02/18 05/02/18 12:27 14:01 16:19 WBC 8.2 RBC 3.55 L Hgb 9.2 L Hct 28.6 L MCV 80.7 MCH 25.8 L MCHC 32.0 RDW 15.9 Plt Count 263 MPV 9.0 Hematology Comments Sodium Potassium Chloride Carbon Dioxide Anion Gap BUN Creatinine Estimated GFR POC Glucose 109 97 Random Glucose Calcium 05/02/18 05/02/18 05/03/18 20:37 23:55 08:22 WBC RBC Hgb Hct MCV MCH MCHC RDW Plt Count MPV Hematology Comments Sodium 143 Potassium 3.8 Chloride 108 H Carbon Dioxide 27.8 Anion Gap 7 BUN 19 H Creatinine 1.81 H Estimated GFR 34 L POC Glucose 161 H 132 H Random Glucose 113 H Calcium 9.1 - Procedures EGD/ colonoscopy. Assessment and Plan - Plan - Chronic anemia on acute anemia , worsening, now symptomatic with this- hgb 7.2 with sob and fatigue for the past week. Pt was evaluated at [facility] two days ago and was discharged home after doing some blood work. she had another blood work prior to this presentation when she was found to have a Hb of 6.7 for which she was advised to come back to ER by her PCP. She endorses abdominal pain in different areas comes and goes but not severe. She had some dark stools few days ago. Denies nausea, vomiting, diarrhea, constipation or hematochezia she denies any chest pain. she says that she had EGD/ colonoscopy four years ago in [place] and was found to have stomach ulcer. she denies alcohol or NSAIDs Abdomen/Pelvis CT 05/01/18 05:45 CONCLUSION: 1. No acute abnormality is identified to explain the patient's blood in stool. There are no findings to indicate diverticulitis. 2. Nonacute findings include cholelithiasis, small hiatal hernia, and 2 areas of high density in the left uterus measuring up to 3.1 cm at likely represent uterine fibroids. - CAD- s/p CABG and stent a couple of months ago on Plavix at home, - hypertension, diabetes , chronic anemia, CKD s/p right nephrectomy 05/02/2018 patient is doing better, no active bleeding, had some blood in the stool, she had upper endoscopy and colonoscopy Upper endoscopy showed AVM, irregular Z line in the esophagus, gastritis, colonoscopy showed internal hemorrhoids (05/03) Pt reports she feels great today. Waiting on her DC paperwork. Recommendation May feed patient Lowest possible anticoagulation dose Supportive care Continue PPI Follow-up biopsy Monitor H&H with pack RBC as needed Have pt follow up with GI after DC Pt has been seen and examined by myself and Dr. Austin and this note is written on his behalf
[2018-05-03 11:46] VITALS: BP 177/72; PULSE 99; RESP 18; TEMP 98.4; O2SAT 94
== END 2018-05-03 10:39 | disposition home or self-care (01) ==
LOC: NEPE 05:04 → NEDA 07:33 → N06 14:05
PROVIDERS: ADMIT Internal Medicine; ATTEND Internal Medicine
PROC: COLONOS (2018-05-02 14:57)
PROC: PANENDO (2018-05-02 14:57)